=== PATIENT | male | born 1990 | race Caucasian/White ===

== ENCOUNTER 2017-07-12 17:24 | Emergency (ER) | payer MEDICARE ==
[~2017-07-12] VITALS: Ht 172.7 cm; Wt 70.0 kg
[2017-07-12 17:28] VITALS: BP 148/99
[2017-07-12] MEDS ORDERED: INSLIS SUBCUT (17:31)
[2017-07-12] MEDS ORDERED: LANTUS (17:31)
== END 2017-07-12 23:16 | disposition left against medical advice (07) ==
LOC: ER 18:15
DX: R10.9 Unspecified abdominal pain (principal); Z53.21 Procedure and treatment not carried out due to patient leaving prior to being seen by health care provider